=== PATIENT | male | born 1960 | race Caucasian/White ===

== ENCOUNTER 2019-10-16 09:42 | Emergency (ER) | payer OTHER ==
[~2019-10-16] VITALS: Ht 175.3 cm; Wt 86.2 kg
[2019-10-16 09:54] VITALS: Ht 175.3 cm; Wt 86.2 kg
[2019-10-16 12:38] VITALS: BP 135/78
== END 2019-10-16 12:38 | disposition home or self-care (01) ==
LOC: ED 09:42
DX: S01.01XA Laceration without foreign body of scalp, initial encounter (principal); M54.2 Cervicalgia; W22.8XXA Striking against or struck by other objects, initial encounter; Y93.02 Activity, running; Y92.89 Other specified places as the place of occurrence of the external cause; Y99.8 Other external cause status
CPT/HCPCS: 90715; J2001